=== PATIENT | male | born 1980 | race Caucasian/White ===

== ENCOUNTER → 2020-06-14 | Outpatient (CLI) | payer SELFPAY ==
[~2020-06-14] MED LIST: AMOXICILLIN500 MG PO; CLEOCIN150 MG PO; FLEXERIL10 MG PO; MOTRIN800 MG PO; TRIMOX500 MG PO; VICODIN 500 MG-1 TAB PO
== END | disposition home or self-care (01) ==
LOC: COVID19 00:16
PROVIDERS: ATTEND Internal Medicine Nephrology
DX: Z20.828 Contact with and (suspected) exposure to other viral communicable diseases (principal)

== ENCOUNTER 2020-10-08 18:08 | Emergency (ER) | payer SELFPAY ==
[2020-10-08 19:15] LABS: BASO # 0.1 10*3/uL (0.0-0.1); BASO % 0.6 % (0.0-1.0); EOS # 0.6 10*3/uL (0.0-0.4); EOS % 4.3 % (1.0-4.0); HEMATOCRIT 40.6 % (42.0-52.0); LYMPH # 3.9 10*3/uL (1.3-4.4); LYMPH % 29.5 % (27.0-41.0); MEAN CELL VOLUME 88.1 fl (80.0-94.0); MEAN CORPUSCULAR HGB 30.2 pg (27.0-31.0); MEAN CORPUSCULAR HGB CONC 34.2 g/dl (33.0-37.0); MONO # 0.9 10*3/uL (0.1-1.0); MONO % 6.8 % (3.0-9.0); NEUT # 7.7 10*3/uL (2.3-7.9); NEUT % 58.5 % (47.0-73.0); PLATELET COUNT AUTOMATED 289 10*3/uL (130-400); RED BLOOD COUNT 4.61 10*6/uL (4.50-5.90); RED CELL DISTRI WIDTH 12.5 % (0-14.5); WHITE BLOOD COUNT 13.1 10*3/uL (4.8-10.8)
[2020-10-08 19:33] LABS: ALBUMIN 3.6 gm/dl (3.1-4.5); ALKALINE PHOSPHATASE 108 U/L (45-117); BUN 16 mg/dl (7-24); CHLORIDE 109 mmol/L (98-107); CREATININE 0.81 mg/dL (0.70-1.30); POTASSIUM 3.8 mmol/L (3.5-5.1); SGOT/AST 15 IU/L (3-35); SGPT/ALT 26 U/L (12-78); SODIUM 140 mmol/L (136-145); TOTAL PROTEIN 7.7 gm/dL (6.4-8.2)
[2020-10-08] MEDS ORDERED: CLINDAMYCIN HC300 MG PO ×2 (20:56)
== END 2020-10-08 21:08 | disposition left against medical advice (07) ==
LOC: ED 18:08
PROVIDERS: Physician Assistant
DX: L03.116 Cellulitis of left lower limb (principal); M19.90 Unspecified osteoarthritis, unspecified site

== ENCOUNTER 2020-10-24 15:25 | Emergency (ER) | payer SELFPAY ==
[~2020-10-24 15:25] MED LIST changes: +CLINDAMYCIN HC300 MG PO
[2020-10-24] MEDS ORDERED: IBUPROFEN400 MG PO (20:37)
== END 2020-10-24 16:33 | disposition home or self-care (01) ==
LOC: ED 15:25
DX: S81.802A Unspecified open wound, left lower leg, initial encounter (principal); M06.9 Rheumatoid arthritis, unspecified; Z79.2 Long term (current) use of antibiotics; Z53.29 Procedure and treatment not carried out because of patient's decision for other reasons; X58.XXXA Exposure to other specified factors, initial encounter; Y93.89 Activity, other specified; Y92.89 Other specified places as the place of occurrence of the external cause; Y99.8 Other external cause status

== ENCOUNTER 2020-10-24 17:08 | Inpatient (IN) | payer SELFPAY ==
[~2020-10-24] VITALS: Ht 185.4 cm; Wt 116.3 kg
[2020-10-24 17:12] VITALS: BP 157/84
[2020-10-24 17:48] LABS: BASO # 0.1 10*3/uL (0.0-0.1); BASO % 0.6 % (0.0-1.0); EOS # 0.5 10*3/uL (0.0-0.4); EOS % 4.2 % (1.0-4.0); HEMATOCRIT 39.9 % (42.0-52.0); LYMPH # 3.3 10*3/uL (1.3-4.4); LYMPH % 27.6 % (27.0-41.0); MEAN CELL VOLUME 87.5 fl (80.0-94.0); MEAN CORPUSCULAR HGB CONC 34.3 g/dl (33.0-37.0); MEAN PLATELET VOLUME 9.1 fl (9.6-12.3); MONO # 0.8 10*3/uL (0.1-1.0); MONO % 6.3 % (3.0-9.0); NEUT # 7.3 10*3/uL (2.3-7.9); PLATELET COUNT AUTOMATED 275 10*3/uL (130-400); RED BLOOD COUNT 4.56 10*6/uL (4.50-5.90); RED CELL DISTRI WIDTH 12.5 % (0-14.5); WHITE BLOOD COUNT 11.9 10*3/uL (4.8-10.8)
[2020-10-24 18:08] LABS: ALBUMIN 3.6 gm/dl (3.1-4.5); ALKALINE PHOSPHATASE 107 U/L (45-117); BUN 19 mg/dl (7-24); CHLORIDE 108 mmol/L (98-107); CREATININE 0.88 mg/dL (0.70-1.30); SGOT/AST 20 IU/L (3-35); SGPT/ALT 25 U/L (12-78); SODIUM 139 mmol/L (136-145); TOTAL PROTEIN 8.1 gm/dL (6.4-8.2)
--- NOTE | 2020-10-24 19:05 | NUR ---
REPORT FROM SHARON NICKERSON AT THIS TIME
[2020-10-24 19:40] VITALS: BP 150/84
[2020-10-24 20:10] VITALS: BP 163/75
[2020-10-24] MEDS ORDERED: IBUPROFEN400 MG PO (20:37)
--- NOTE | 2020-10-24 20:37 | NUR ---
A 40, admitted to , under the services of ELVIA Bellamy DO with a diagnosis of INFECTION. Chief complaint is INFECTION. Patient arrived via bed from [place]. Monitor applied. Initial assessment completed. Vital signs taken and recorded. ELVIA BELLAMY DO notified of admission to the unit. Orders received. See assessment for past medical history, medications and allergies. Patient and/or family oriented to unit. [facility] visitation policy reviewed. Clothing/patient valuable form completed. TRACEY PITTS
--- NOTE | 2020-10-24 23:07 | NUR ---
NORCO GIVEN PER ORDER FOR 8/10 PAIN IN LEFT LEG. WILL MONITOR
[2020-10-25] VITALS: BP 132/75
--- NOTE | 2020-10-25 | NUR ---
PER PT, INOCENCIA HELPED PAIN
--- NOTE | 2020-10-25 01:00 | NUR ---
DR. SORTO NOTIFIED OF PT COMPLAINT OF ITCHY SKIN FROM VANC. SKIN RED, SCRATCH MEDINA VISABLE. ONE DOSE OF BENADRYL 50 MG PO ORDERED AT THIS TIME. WILL MONITOR
--- NOTE | 2020-10-25 02:00 | NUR ---
PER PT, ITCHINESS HAS SUBSIDED, NO OTHER COMPLAINTS
--- NOTE | 2020-10-25 05:00 | NUR ---
IN TO SEE PT. PT AWAKENS EASILY FOR AM MED PASS. NO COMPLAINTS AT THIS TIME. CALL LIGHT IN REACH
[2020-10-25 06:34] LABS: BASO % 0.4 % (0.0-1.0); EOS # 0.5 10*3/uL (0.0-0.4); EOS % 5.3 % (1.0-4.0); HEMATOCRIT 38.7 % (42.0-52.0); LYMPH # 3.1 10*3/uL (1.3-4.4); LYMPH % 33.1 % (27.0-41.0); MEAN CELL VOLUME 90.2 fl (80.0-94.0); MEAN CORPUSCULAR HGB CONC 34.4 g/dl (33.0-37.0); MEAN PLATELET VOLUME 9.5 fl (9.6-12.3); MONO # 0.7 10*3/uL (0.1-1.0); MONO % 7.6 % (3.0-9.0); NEUT % 53.4 % (47.0-73.0); PLATELET COUNT AUTOMATED 239 10*3/uL (130-400); RED BLOOD COUNT 4.29 10*6/uL (4.50-5.90); RED CELL DISTRI WIDTH 12.8 % (0-14.5); WHITE BLOOD COUNT 9.5 10*3/uL (4.8-10.8)
--- NOTE | 2020-10-25 06:46 | NUR ---
DR. MARIA NOTIFIED OF CONSULT.
[2020-10-25 06:53] LABS: ALBUMIN 3.2 gm/dl (3.1-4.5); ALKALINE PHOSPHATASE 104 U/L (45-117); BUN 15 mg/dl (7-24); CHLORIDE 109 mmol/L (98-107); CHOLESTEROL 190 mg/dL (<200); CREATININE 0.76 mg/dL (0.70-1.30); FREE T4 1.26 ng/dl (0.76-1.46); HDL CHOLESTEROL 44 mg/dl (40-60); LDL CHOLESTEROL 128 mg/dL (9-159); POTASSIUM 3.9 mmol/L (3.5-5.1); SGOT/AST 34 IU/L (3-35); SGPT/ALT 35 U/L (12-78); SODIUM 139 mmol/L (136-145); TOTAL PROTEIN 7.2 gm/dL (6.4-8.2); TRIGLYCERIDES 90 mg/dl (<150); VLDL CHOLESTEROL 18 mg/dL (6-40)
[2020-10-25 07:53] LABS: VITAMIN D, 25-HYDROXY 10.1 ng/mL (30-100)
[2020-10-25 08:00] VITALS: BP 126/84
--- NOTE | 2020-10-25 08:45 | NUR ---
NORCO GIVEN PER REQUEST FOR C/O LLE PAIN. RATES 8/10 ON PAIN SCALE. WILL MONITOR.
--- NOTE | 2020-10-25 09:50 | NUR ---
INOCENCIA EFFECTIVE PER PT.
--- NOTE | 2020-10-25 10:52 | NUR ---
KARON in to talk to patient. Patient states lives at home with his 2 children. There are 0 steps in the home. Physician: does not have Pharmacy: [facility] Home health services: no Patient's level of ADLs: INDEPENDENT Patient has working utilities: yes DME: no Follow-up physician's appointment after d/c: Will need Does patient want to access PORTAL?: yes Discharge plan Pt resides at home with his children. He is currently employed at [employer]. Pt does not have health insurance. Nedra from [employer] is aware of this. If pt is in need of IV antibiotics, pt would need to return to [facility] for the scheduled IV. PABLITO DAVIDSON
--- NOTE | 2020-10-25 11:45 | NUR ---
dr. nova's answering service notified of conulst.
[2020-10-25 12:00] VITALS: BP 149/84
--- NOTE | 2020-10-25 15:18 | NUR ---
NORCO GIVEN FOR C/O LT LEG APIN. RATES 9/10 ON PAIN SCALE. WILL MONITOR
[2020-10-25 16:00] VITALS: BP 157/89
[2020-10-25 20:00] VITALS: BP 139/74
--- NOTE | 2020-10-25 23:05 | NUR ---
24 HR chart check completed.
[2020-10-26] VITALS: BP 123/73
--- NOTE | 2020-10-26 01:26 | NUR ---
RESP. EASY AND REG. NO ACUTE DISTRESS NOTED. PATIENT SLEEPING.
[2020-10-26 07:22] LABS: BASO # 0.1 10*3/uL (0.0-0.1); BASO % 0.6 % (0.0-1.0); EOS # 0.6 10*3/uL (0.0-0.4); EOS % 7.3 % (1.0-4.0); LYMPH # 2.2 10*3/uL (1.3-4.4); LYMPH % 28.3 % (27.0-41.0); MEAN CELL VOLUME 89.2 fl (80.0-94.0); MEAN CORPUSCULAR HGB 30.2 pg (27.0-31.0); MEAN CORPUSCULAR HGB CONC 33.8 g/dl (33.0-37.0); MEAN PLATELET VOLUME 8.9 fl (9.6-12.3); MONO # 0.5 10*3/uL (0.1-1.0); MONO % 6.2 % (3.0-9.0); NEUT # 4.4 10*3/uL (2.3-7.9); NEUT % 57.5 % (47.0-73.0); PLATELET COUNT AUTOMATED 240 10*3/uL (130-400); RED BLOOD COUNT 4.37 10*6/uL (4.50-5.90); RED CELL DISTRI WIDTH 12.6 % (0-14.5); WHITE BLOOD COUNT 7.7 10*3/uL (4.8-10.8)
[2020-10-26 07:36] LABS: BUN 14 mg/dl (7-24); CHLORIDE 110 mmol/L (98-107); CREATININE 0.75 mg/dL (0.70-1.30); POTASSIUM 4.3 mmol/L (3.5-5.1); SODIUM 140 mmol/L (136-145)
[2020-10-26 08:00] VITALS: BP 135/77
[2020-10-26 12:00] VITALS: BP 148/93
[2020-10-26 16:00] VITALS: BP 145/85
[2020-10-26 20:00] VITALS: BP 140/95
--- NOTE | 2020-10-26 23:23 | NUR ---
NORCO GIVEN FOR PAIN LEFT LEG PAIN RATED "5-6" PER PT. SEE MAR.
[2020-10-27] VITALS: BP 138/80
--- NOTE | 2020-10-27 00:20 | NUR ---
NORCO EFFECTIVE FOR PAIN PER PT.
--- NOTE | 2020-10-27 01:59 | NUR ---
24 HR chart check completed.
--- NOTE | 2020-10-27 06:20 | NUR ---
PER DR. MACARIO BANGURA TO USE PICC LINE FOR IV FLUIDS/MEDS AND LAB DRAWS.
[2020-10-27 07:09] LABS: BASO % 0.5 % (0.0-1.0); EOS # 0.5 10*3/uL (0.0-0.4); EOS % 5.6 % (1.0-4.0); HEMATOCRIT 40.5 % (42.0-52.0); LYMPH # 2.7 10*3/uL (1.3-4.4); LYMPH % 30.2 % (27.0-41.0); MEAN CELL VOLUME 89.8 fl (80.0-94.0); MEAN CORPUSCULAR HGB 29.9 pg (27.0-31.0); MEAN CORPUSCULAR HGB CONC 33.3 g/dl (33.0-37.0); MONO # 0.6 10*3/uL (0.1-1.0); MONO % 6.4 % (3.0-9.0); NEUT % 57.1 % (47.0-73.0); PLATELET COUNT AUTOMATED 238 10*3/uL (130-400); RED BLOOD COUNT 4.51 10*6/uL (4.50-5.90); RED CELL DISTRI WIDTH 12.6 % (0-14.5); WHITE BLOOD COUNT 8.8 10*3/uL (4.8-10.8)
[2020-10-27 07:42] LABS: BUN 16 mg/dl (7-24); CHLORIDE 109 mmol/L (98-107); CREATININE 0.76 mg/dL (0.70-1.30); POTASSIUM 3.9 mmol/L (3.5-5.1); SODIUM 140 mmol/L (136-145)
[2020-10-27 08:00] VITALS: BP 145/83
--- NOTE | 2020-10-27 09:58 | NUR ---
Faxed IV ertapenem 1 gm daily x [address] Adames to pharmacy and central scheduling. Spoke to Anthony in pharmacy regarding supply. They have ertapenem in stock.
--- NOTE | 2020-10-27 10:29 | NUR ---
Spoke to central scheduling regarding patient coming in for outpatient IV antibiotics. He is scheduled for 9am starting tomorrow. Hospitalist nurse director, patient, and nurse notified. Spoke to Nedra in [facility], patient is over resourced for medicaid.
--- NOTE | 2020-10-27 10:46 | NUR ---
Patient asked to speak with social group worker regarding assistance with being off of work. funeral workers notified.
--- NOTE | 2020-10-27 11:54 | NUR ---
INFORMATION WRITER IN TO SEE THE PATIENT AT BEDSIDE. 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 PATIENT STATED HE IS OVER INCOMED FOR MEDICAID AND HAS BEEN DENIED IN THE PAST. INFORMATION WRITER PROVIDED THE PATIENT WITH RESOURCES ON [employer] FOR ASSISTANCE WITH UTILITIES (HEAP, PIPP). INFORMATION WRITER PROVIDED THE PATIENT WITH RESOURCES FOR JOB AND FAMILY SERVICES FOR FOOD AND BRAND ASSISTANCE. PATIENT STATED THAT HIS CHILDREN HAVE A MEDICAID HOME HEALTH MANAGER. INFORMATION WRITER EXPLAINED SHE MAY BE ABLE TO ASSIST THEM WELL. PATIENT STATED HE WOULD REACH OUT TO BOTH [employer] AND S TO SEEK ASSISTANCE. RN CASE MANAGE STANLEY IS AWARE.
[2020-10-27 12:00] VITALS: BP 132/80
[2020-10-27] MEDS ORDERED: VITAMIN D350 MC2 PO (13:08)
[2020-10-27] MEDS ORDERED: NORCO 5-325 TA1 EACH PO (13:08)
[2020-10-27] MEDS ORDERED: ERTAPENEM1 GM IV (13:08)
--- NOTE | 2020-10-27 14:20 | NUR ---
PT DECLINES TO HAVE DRESSING REMOVED FOR DISCHARGE WOUND PHOTOS.
--- NOTE | 2020-10-27 14:33 | NUR ---
Discharge instructions reviewed with patient/family. Patient receptive and verbalizes understanding. Follow-up care arranged. Written instructions given to patient/family. TERRI GAMBINO
== END 2020-10-27 14:33 | disposition home or self-care (01) | DRG 603 ==
LOC: ED 17:08 → EDHOLD 18:36 → 5E 18:36
PROVIDERS: Internal Medicine; Nurse Practitioner Family; ADMIT Family Medicine; ATTEND Family Medicine
PROC: 02HV33Z Insertion of Infusion Device into Superior Vena Cava, Percutaneous Approach (ICD-10-PCS; principal; 2020-10-26)
DX: L03.116 Cellulitis of left lower limb (principal); L97.929 Non-pressure chronic ulcer of unspecified part of left lower leg with unspecified severity; D64.9 Anemia, unspecified; M06.9 Rheumatoid arthritis, unspecified; E83.41 Hypermagnesemia; E83.51 Hypocalcemia; R03.0 Elevated blood-pressure reading, without diagnosis of hypertension; B96.20 Unspecified Escherichia coli [E. coli] as the cause of diseases classified elsewhere; B96.89 Other specified bacterial agents as the cause of diseases classified elsewhere; I73.9 Peripheral vascular disease, unspecified; E87.8 Other disorders of electrolyte and fluid balance, not elsewhere classified; D72.829 Elevated white blood cell count, unspecified; R79.82 Elevated C-reactive protein (CRP); R59.0 Localized enlarged lymph nodes; Z83.3 Family history of diabetes mellitus; Z87.891 Personal history of nicotine dependence

== ENCOUNTER 2022-04-03 06:59 | Emergency (ER) | payer OTHER ==
[~2022-04-03] VITALS: Wt 115.2 kg
[~2022-04-03 06:59] MED LIST changes: +ERTAPENEM1 GM IV; +IBUPROFEN400 MG PO; +NORCO 5-325 TA1 EACH PO; +VITAMIN D350 MC2 PO
== END 2022-04-03 09:18 | disposition home or self-care (01) ==
LOC: ED 06:59
DX: S70.361A Insect bite (nonvenomous), right thigh, initial encounter (principal); W57.XXXA Bitten or stung by nonvenomous insect and other nonvenomous arthropods, initial encounter; Y93.89 Activity, other specified; Y92.89 Other specified places as the place of occurrence of the external cause; Y99.8 Other external cause status